=== PATIENT | female | born 1940 | race Caucasian/White ===

== ENCOUNTER 2017-11-06 12:53 | Inpatient (IN) | payer MEDICARE, OTHER ==
[~2017-11-06] VITALS: Ht 152.4 cm; Wt 68.5 kg
[~2017-11-06 12:53] MED LIST: AMARYL4 MG PO; AMLODIPINE BESY10 MG PO; ASPIR 8181 M1 PO; BACTRIM DS TAB1 EACH PO; BENTYL 10 MG CA10 M1 PO; BYSTOLIC 5 MG5 M1 PO; CARBIDOPA-LEVO1 EAC6 PO; CIPRO500 MG PO; CLARITIN10 MG PO; COZAAR 50 MG TA50 M2 PO; FLAGYL500 MG PO; HYDRALAZINE 2525 MG PO; IMDUR 60 MG TAB60 M1 PO; LANTUS100 UNIT/M SUBQ; LEVAQUIN 500 M500 M2 PO; LEVOTHYROXINE 0.1 MG PO; LIPITOR40 MG PO; LOPRESSOR50 PO; MACROBID 100 M100 M1 PO; MAG-OXIDE400 MG PO; NORCO 5-325 TA1 EACH PO; NORVASC10 MG PO; OMEPRAZOLE40 MG PO; VITAMIN D2000 UNIT PO
[2017-11-06 13:05] VITALS: BP 170/95
[2017-11-06] MEDS ORDERED: LASIX 20 MG TAB20 MG PO (13:14)
[2017-11-06] MEDS ORDERED: LOPRESSOR25 PO (13:14)
[2017-11-06] MEDS ORDERED: OMEPRAZOLE 20 M20 MG PO (13:15)
[2017-11-06] MEDS ORDERED: NITROGLYCERIN0.4 MG SUBLING (13:16)
[2017-11-06] MEDS ORDERED: ALL DAY ALLERGY10 M3 PO (13:16)
[2017-11-06 13:35] LABS: ABSOLUTE BASOPHILS 0.1 thou/uL (0.0-0.2); ABSOLUTE EOSINOPHILS 0.1 thou/uL (0.0-0.7); ABSOLUTE LYMPHOCYTES 1.1 thou/uL (0.8-5.3); ABSOLUTE MONOCYTES 1.4 thou/uL (0.0-1.2); ABSOLUTE NEUTROPHILS 6.2 thou/uL (1.6-8.1); BASOPHILS 1.3 %; EOSINOPHILS 0.7 %; HEMATOCRIT 37.7 % (37.0-47.0); HEMOGLOBIN 12.1 gm/dL (12.0-15.0); LYMPHOCYTES 12.6 %; MCHC 32.2 g/dL (28.0-37.0); MCV 83.9 fL (80.0-100.0); MONOCYTES 15.6 %; NUCLEATED RBCS 0 /100WBC; PLATELET COUNT* 225 thou/uL (150-400); POLYS 69.8 %; RBC 4.49 mil/uL (4.20-5.00); RDW-CV 15.6 % (10.5-14.5); WBC 8.9 thou/uL (4.0-11.0)
[2017-11-06 13:38] LABS: INFLUENZA B ANTIGEN None Detected (None Detect)
[2017-11-06 13:43] LABS: ANION GAP 12 mmol/L (7-16); BUN 17 mg/dL (7-18); CALCIUM 9.1 mg/dL (8.5-10.1); CHLORIDE 100 mmol/L (98-107); CO2 24 mmol/L (21-32); CREATININE 1.5 mg/dL (0.6-1.3); GLUCOSE 170 mg/dL (70-99); SODIUM 136 mmol/L (136-145)
[2017-11-06 13:50] LABS: ALBUMIN 3.6 g/dL (3.4-5.0); ALKALINE PHOSPHATASE 74 U/L (46-116); SGOT 41 U/L (15-37); SGPT 20 U/L (30-65); TOTAL BILIRUBIN 0.4 mg/dL (<0.1-1.0); TOTAL PROTEIN 8.6 g/dL (6.4-8.2); TROPONIN-I LEVEL <0.06 ng/mL (<0.06)
[2017-11-06 15:43] VITALS: BP 134/73
[2017-11-06 17:00] VITALS: BP 135/69
--- NOTE | 2017-11-06 20:59 | NUR ---
PATIENT A&OX2-3 CONFUSED, ON 2L O2 NC, IV RIGHT AC WITH FLUIDS INFUSSING. PATIENT IS LETHARGIC AND SLEEPING. PATIENT WILL WAKE UP WHEN HEARING NAME, BUT FALLS BACK ASLEEP SOON THERAFTER. UNABLE TO SIGN PAPERWORK, VERBALIZES UNDERSTANDING. FAMILY WILL BE AT BEDSIDE THROUGH THE NIGHT, INSTRUCTED NOC NURSE TO HAVE FAMILY SING. UP WITH ASSISTX1, UNSTEADY. BM TODAY, LOOSE WATER, ODOROUS, AND MUCUS CONSISTANCY. SAMPLE SENT FOR POSSIBLE C-DIFF, RESULTS PENDING. NO C/O PAIN/N/V. PATIENT RECIEVED TYLENOL PRIOR TO ADMISSION TO FLOOR, TEMP WENT DOWN TO 97.5. ADM ASSESSMENT COMPLETED AND DOCUMENTED. NO OTHER CONCERNS AT THIS TIME. APPROPRIATE AND COOPORATIVE WITH CARE.
[2017-11-06 21:30] VITALS: BP 169/76
[2017-11-07 03:45] VITALS: BP 145/65
[2017-11-07 05:08] LABS: HEMATOCRIT 33.2 % (37.0-47.0); HEMOGLOBIN 10.6 gm/dL (12.0-15.0); MCH 27.4 pg (26.0-34.0); MCHC 32.1 g/dL (28.0-37.0); MCV 85.4 fL (80.0-100.0); MPV 9.5 fl. (7.2-11.1); RBC 3.88 mil/uL (4.20-5.00); RDW-CV 15.8 % (10.5-14.5); WBC 6.9 thou/uL (4.0-11.0)
[2017-11-07 05:26] LABS: CALCIUM 8.2 mg/dL (8.5-10.1); CREATININE 1.5 mg/dL (0.6-1.3); MAGNESIUM 1.8 mg/dL (1.8-2.4)
--- NOTE | 2017-11-07 07:31 | NUR ---
PT DROWSY OVERNIGHT, AWAKENS BRIEFLY WITH CARES AND MEDS AND BACK TO SLEEP. O2 2L, RT TX AT HS. AM LABS DRAWN, CXR TODAY. FAMILY MEMBERS AT BEDSIDE OVERNIGHT, BED ALARM ON FOR SAFETY, CALL LITE IN EASY REACH. RAC IVF INFUSING PER PUMP. HS ACCUCHECK 143, INSULIN GIVEN AND VANILLA PUDDING. INCONTINENT URINE OVERNIGHT, UNABLE TO OBTAIN UA SPECIMEN, JACK CARE GIVEN. CONGESTED COUGH HEARD, NO SPUTUM SEEN. REMAINS ON DROPLET PRECAUTIONS FOR +FLU- HOSPITALIZED ON TELE UNIT FOR +FLU WELL. NO BM OVERNIGHT.
[2017-11-07 08:15] VITALS: BP 131/72
[2017-11-07 09:47] LABS: URINE BILIRUBIN NEGATIVE (Negative); URINE BLOOD 3+ (Negative); URINE CLARITY CLEAR; URINE COLOR YELLOW; URINE GLUCOSE-RANDOM NEGATIVE (Negative); URINE KETONES NEGATIVE (Negative); URINE LEUKOCYTES-REFLEX NEGATIVE (Negative); URINE NITRITE-REFLEX NEGATIVE (Negative); URINE PROTEIN 3+ (Negative); URINE SPECIFIC GRAVITY >= 1.030 (1.005-1.030); URINE UROBILINOGEN 0.2 E.U./dl (0.2-1.0)
[2017-11-07 09:56] LABS: BACTERIA-REFLEX 1-9 Few /HPF (None Seen); CASTS None Seen /LPF (None Seen); CRYSTALS None Seen /LPF (None Seen); SQUAMOUS 4-10 Moderate /LPF (0-3); URINE RBC >20 Many /HPF (0-2); URINE WBC-REFLEX 0-5 Rare /HPF (0-5)
--- NOTE | 2017-11-07 10:58 | EKG ---
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: MS : 1940 Requested By: Marek Alvares Order Number: [id number] MD: Kavon Talamantes Measurements Intervals [place] Rate: 87 P: 17 [place]: 183 QRS: -1 QRSD: 134 T: -57 QT: 386 QTc: 465 Interpretive Statements Sinus rhythm Right bundle branch block Inferior infarct, age indeterminate Lateral leads are also involved Compared to ECG 06/12/2016 20:46:12 No significant changes Electronically Signed On 11-07-2017 10:57:52 RUBBER MIXER by Kavon Talamantes [email or web address] <ELECTRONICALLY SIGNED> By: Kavon Talamantes MD, FACAmaya 11/07/17 1057 1335 1335 Kavon Talamantes MD, [facility] /EPI
--- NOTE | 2017-11-07 14:28 | NUR ---
SW met with pt and pt dtr bedside to complete initial assessment, introduce self, and SW role. Pt alert although did not talk much. Pt dtr answered questions. Pt lives at home with her . Pt has a can and a walker. Pt has history of HH services with [facility]. No expressed needs at this time. SW to continue to follow to assist with safe dc planning.
--- NOTE | 2017-11-07 16:20 | NUR ---
PATIENT'S C DIFF RESULT CAME BACK POSITIVE. DR MICHAEL PAGED TO INFORM OF POSITIVE RESULT. AWAITING RETURN CALL.
--- NOTE | 2017-11-07 17:49 | NUR ---
PATIENT HAS BEEN A/O TO PERSON, AND TIME THIS SHIFT. HAS SLEPT IN NAPS THIS SHIFT. COTNINUES ON O2 AT 2L/NC. UP WITH ASSIST TO BATHROOM. C DIFF +, RESULTS CALLED TO PHYSICIAN AND ORDERS NOTED. PATIENT'S IV SALINE LOCKED. APPETITE FAIR. PT/OT/ST FROYALS PENDING. FAMILY AT BEDSIDE INTERMITTENTLY THIS SHIFT. FALL PRECAUTIONS IN PLACE. TURNING SELF WITH REMINDERS. HOURLY ROUNDING MAINTAINED. CALL LIGHT WITHIN REACH. WILL CONTINUE WITH PLAN OF CARE.
[2017-11-07 19:50] VITALS: BP 142/68
--- NOTE | 2017-11-08 06:08 | NUR ---
PT MORE AWAKE AND ALERT TONIGHT THAN LAST NIGHT, CONVERSATIONAL, AOX4 WITH PERIOD OF CONFUSION OVERNIGHT-ATTEMPTING TO GET OOB SETTING OFF BED ALARM AND PULLING OUT IV. CONGESTED COUGH HEARD, NO SPUTUM SEEN. O2 2L. HS ACCUCHECK 237 INSULIN GIVEN WITH SNACK. UP WITH SBA AND WALKER TO BR TO VOID. SMALL SMEAR BM OVERNIGHT. REMAINS ON DROPLET AND SP CONTACT ISOLATION FOR +FLU AND CDIFF, PO VANC GIVEN ORDERED. AM LAB. ABLE TO USE CALL LITE AND MAKE NEEDS KNOWN.
[2017-11-08 09:00] VITALS: BP 145/65
--- NOTE | 2017-11-08 14:32 | NUR ---
PT. DECLINED O.T. EVAL STATING THAT SHE DIDN'T HAVE A NEED FOR O.T. PT. SAYS SHE HAS BEEN GETTING UP TO THE BATHROOM WITHOUT ANY DIFFICULTY AND ABLE TO BATHE HERSELF. THEREFORE, O.T. SERVICES ARE NOT INDICATED PER PT. PREFERENCE AND REPORT.
--- NOTE | 2017-11-08 15:40 | NUR ---
SW checked on pt copay of Vanco 125 mg with [facility] and pharmacy quoted pt copay to be $55. Script to be ready tomorrow after 8 am. SW to continue to follow to assist with safe dc planning.
[2017-11-08 16:55] VITALS: BP 150/73
--- NOTE | 2017-11-08 18:59 | NUR ---
PATIENT HAS BEEN A/O TO PERSON, PLACE AND SITUATION, FORGETFUL AT TIMES. PATIENT TITRATED TO ROOM AIR. PATIENT CONTINUES WITH LOOSE STOOLS, CONTINUES ON ORAL VANCOMYCIN. PATIENT STARTED ON IV FLUIDS THIS AFTERNOON. PATIENT HAD COMPLAINTS OF INTERMITTENT CHEST PAIN THIS AFTERNOON, DR MICHAEL NOTIFIED. PLACED ON SOFTWARE PROJECT LEAD, TRACING NSR. EKG OBTAINED AND TROPONINS COMPLETED. UP WITH STAND BY ASSIST WITH WALKER TO BATHROOM. TOLERATING DIET. PATIENT HOPEFUL TO BE DISCHARGED SOON. REMAINS IN DROPLET PRECAUTIONS FOR + FLU AND SPECIAL CONTACT ISOLATION FOR + CDIFF. HOURLY ROUNDING COMPLETED. CALL LIGHT WITHIN REACH. WILL CONTINUE WITH PLAN OF CARE.
[2017-11-08 19:50] VITALS: BP 153/74
[2017-11-08 23:30] VITALS: BP 123/62
[2017-11-09 03:54] VITALS: BP 109/70
[2017-11-09 03:59] LABS: HEMATOCRIT 29.5 % (37.0-47.0); HEMOGLOBIN 9.5 gm/dL (12.0-15.0); MCH 27.3 pg (26.0-34.0); MCHC 32.3 g/dL (28.0-37.0); MCV 84.5 fL (80.0-100.0); RBC 3.48 mil/uL (4.20-5.00); RDW-CV 15.4 % (10.5-14.5); WBC 5.8 thou/uL (4.0-11.0)
[2017-11-09 04:12] LABS: CALCIUM 7.8 mg/dL (8.5-10.1); CREATININE 1.3 mg/dL (0.6-1.3); POTASSIUM 4.2 mmol/L (3.5-5.1)
--- NOTE | 2017-11-09 06:49 | NUR ---
ASSESSMENT COMPLETE. PT SLEPT PART OF THE NIGHT, MELATONIN GIVEN TO HELP SLEEP. PT IS ON ROOM AIR WITH ADEQUATE SATS. PT DENIES PAIN AND N/V. PT TURNS SELF IN BED. PT IS IN ISOLATION FOR CDIFF AND FLU. PT IS FALL RISK, BED ALARM ON. PT IS UP ONE ASSIST TO BSC. PT HAS IV IN RIGHT FOREARM WITH FLUIDS INFUSING. SEE ASSESSMENT AND VITALS FOR OTHER DETAILS. CALL LIGHT WITHIN REACH, WILL CONTINUE TO MONITOR
[2017-11-09 10:00] VITALS: BP 152/75
--- NOTE | 2017-11-09 13:05 | EKG ---
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 Supervisor: RODNEY PARRA : 1940 Requested By: Pete Lopez Order Number: [id number] Ciara MD: Kavon Talamantes Measurements Intervals [place] Rate: 76 P: 43 [place]: 182 QRS: -27 QRSD: 143 T: -38 QT: 396 QTc: 446 Interpretive Statements Sinus rhythm Right bundle branch block Inferior infarct, age indeterminate Compared to ECG 11/06/2017 13:35:34 No significant changes Electronically Signed On 11-09-2017 13:05:44 [employer] 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
[2017-11-09 16:22] VITALS: BP 143/75
--- NOTE | 2017-11-09 19:49 | NUR ---
PATIENT HAS BEEN A/O X 4 THIS SHIFT, FORGETFUL AT TIMES. HAS DENIED ANY PAIN OR SHORTNESS OF AIR. PATIENT CONTINUES ON EVP BUSINESS DEVELOPMENT, TRACING NSR. PATIENT UP TO BSC/BR WITH MINIMAL ASSIST. PATIENT'S BOWEL MOVEMENTS DECREASING THIS SHIFT AND HAVING MORE FORM TO THEM. CONTINUES ON ORAL VANCOMYCIN. IV FLUIDS CONTINUE TO INFUSE, CPK TRENDING DOWN. PATIENT TO START ON PROBIOTICS AND ID CONSULT NOTED. PATIENT HOPEFUL TO BE DISCHARGED TOMORROW. REMAINS IN ISOLATION FOR +FLU AND +CDIFF. FALL PRECAUTIONS IN PLACE. HOURLY ROUNDING COMPLETED. CALL LIGHT WITHIN REACH. WILL CONTINUE WITH PLAN OF CARE.
[2017-11-09 20:15] VITALS: BP 151/81
[2017-11-10] VITALS (9 sets, daily range): BP systolic 137–149; BP diastolic 63–70
--- NOTE | 2017-11-10 05:42 | NUR ---
PT SLEPT WELL OVERNIGHT, UP WITH SBA TO BSC TO VOID AND SOFT UNFORMED BM. DENIES PAIN. HS ACCUCHECK 256, INSULIN GIVEN WITH SNACK. NO LABS THIS MORNING. ROOM AIR SAT 96%. RFA IVF INFUSING PER PUMP. PO VANC GIVEN ORDERED WITH APPLE JUICE. TELE SR. AOX4. REMAINS ON ISOLATION FOR +FLU AND +CDIFF. ABLE TO USE CALL LITE AND MAKE NEEDS KNOWN. PROBIOTICS GIVEN. HOPEFUL FOR DISCHARGE HOME TODAY.
[2017-11-10] MEDS ORDERED: VANCOCIN 125 M125 M1 PO (13:01)
--- NOTE | 2017-11-10 14:03 | NUR ---
Pt to dc home today and pt preference for [facility] services. JENARO called Mariela with [facility] and faxed referral/orders/med list to [facility] fax [phone]; referral accepted.
--- NOTE | 2017-11-10 15:07 | NUR ---
PATIENT IS ALERT AND ORIENTED TODAY VERY PLEASANT. HAS HAD NO COMPLAINTS TODAY OF PAIN SHORTNESS OF AIR. HAS BEEN AT BEDSIDE THIS AFTERNOON. VITALS SIGNS STABLE ON ROOM AIR. PATIENT HAD A BOWEL MOVEMENT THIS MORNING. PATIENT IS BEING DISCHARGED HOME WITH HOME HEALTH. PATIENT LEFT VIA WHEELCHAIR WITH VOLUNTEER.
--- NOTE | 2017-11-11 07:37 | CON ---
[address] [address] CONSULTATION Name: CHI VELOZ Room: [address] IN M.R.#: [id number] Admission: 11/06/17 Attend Phys: En Ramirez MD Discharge: 11/10/17 Date of : 38 Report #: [id number] THIS REPORT FOR: //name// CC: En Wagoner DATE OF SERVICE: 11/10/2017 ATTENDING PHYSICIAN: Amilcar Rodriguez MD REASON FOR EVALUATION: C. diff colitis. HISTORY OF PRESENT ILLNESS: Chart reviewed, patient examined. This is a 77-year-old female with history of diabetes mellitus, also renal carcinoma, who was admitted with encephalopathy, dyspnea, did have associated diarrhea at that point, was diagnosed with influenza A. She has improved from that standpoint; however, had C. diff positive toxin studies, empirically started on azithromycin, ceftriaxone and now oral vancomycin as well as Tamiflu. She notes she is significantly better. Her stools are semi-formed. Denies pulmonary related complaints at this point. ALLERGIES: TAPE AND SULFA. CURRENT MEDICATIONS: Include lactobacillus, saccharomyces, vancomycin, amlodipine, atorvastatin, azithromycin, oseltamivir, ceftriaxone, pantoprazole, levofloxacin, metoprolol, isosorbide mononitrate, aspirin, ipratropium/albuterol inhaler. PAST MEDICAL HISTORY: As described above, the diabetes mellitus, history of previous left nephrectomy, has hypertension, reflux, has known vasculopathy, coronary artery disease with stenting, some ataxia. SOCIAL HISTORY: Nonsmoker, no ethanol. FAMILY HISTORY: Noncontributory. REVIEW OF SYSTEMS: As above. Denies significant gastrointestinal-related complaints at this point, is actually eating fairly well. PHYSICAL EXAMINATION: VITAL SIGNS: Temperature 98.1, pulse 62, respirations 14, blood pressure 137/66. SKIN: Warm, dry, no rashes. HEENT: Otherwise, unremarkable. NECK: Supple. LUNGS: Few [place] [address] CONSULTATION Name: CHI VELOZ Room: [address] IN ..#: [id number] Admission: 11/06/17 Attend Phys: En Ramirez MD Discharge: 11/10/17 Date of : 38 Report #: [id number] HEART: Regular. Borderline bradycardic. I do not appreciate a murmur. ABDOMEN: Soft, nontender, nondistended. EXTREMITIES: No cyanosis. GENITOURINARY: Deferred. RECTAL: Deferred. LABORATORY DATA: Electrolytes from yesterday: Sodium 139, potassium 4.2, chloride 105, bicarbonate 24, BUN and creatinine 13 and 1.3, anion gap of 10, estimated GFR of 40. CBC: White count of 5.8, H and H 9.5 and 29.5, platelets of 172. Blood cultures collected on the are sterile. Legionella and pneumococcal antigens urine are negative. As noted above, C. diff was positive. MRSA by PCR was negative. Chest x-ray from the , patchy lingular infiltrate. ASSESSMENT: Clostridium difficile colitis in the setting of influenza pneumonitis, has been on broad spectrum antimicrobial therapy. We will pare that down. I think at this point would focus on the intestinal infection. We will utilize a tapering schedule for vancomycin over the course of next few weeks. We will see her in followup. <ELECTRONICALLY SIGNED> By: Luis Antonio Isaacs MD 11/11/17 0737 1224 [id number] Isaacs MD /nt
== END 2017-11-10 15:00 | disposition home health service (06) | DRG 177 ==
LOC: M.ERS 12:53 → M.3W 14:38 → M.TBA-ER 14:38 → M.3W 16:14
PROVIDERS: Emergency Medicine Emergency Medical Services; Internal Medicine; ADMIT Internal Medicine
DX: J10.08 Influenza due to other identified influenza virus with other specified pneumonia (principal); G92 Toxic encephalopathy; J15.6 Pneumonia due to other Gram-negative bacteria; A04.72 Enterocolitis due to Clostridium difficile, not specified as recurrent; M62.82 Rhabdomyolysis; I12.9 Hypertensive chronic kidney disease with stage 1 through stage 4 chronic kidney disease, or unspecified chronic kidney disease; J45.909 Unspecified asthma, uncomplicated; N18.3 Chronic kidney disease, stage 3 (moderate); I25.10 Atherosclerotic heart disease of native coronary artery without angina pectoris; E11.22 Type 2 diabetes mellitus with diabetic chronic kidney disease; K21.9 Gastro-esophageal reflux disease without esophagitis; Z88.8 Allergy status to other drugs, medicaments and biological substances; Z85.528 Personal history of other malignant neoplasm of kidney; Z90.5 Acquired absence of kidney; Z90.710 Acquired absence of both cervix and uterus; Z88.2 Allergy status to sulfonamides; Z87.440 Personal history of urinary (tract) infections; Z90.49 Acquired absence of other specified parts of digestive tract

== ENCOUNTER 2018-06-01 07:21 | Observation (INO) | payer MEDICARE, OTHER ==
[~2018-06-01] VITALS: Ht 152.4 cm; Wt 74.4 kg
[2018-06-01] VITALS (18 sets, daily range): BP systolic 109–172; BP diastolic 73–90
--- NOTE | ~2018-06-01 | PROC ---
[address] [place] [address] PROCEDURE REPORT Name: CHI VELOZ Room: [address] Ninfa Louise#: [id number] Admission: 06/01/18 Attend Phys: Ciaran Fierro MD, Discharge: 06/02/18 Date of : 38 Report #: [id number] THIS REPORT FOR: //name// Please refer to the History and Physical performed in the physician's office. By: [id number] Records Staff VERO /LIBRA
[~2018-06-01 07:21] MED LIST changes: +ALL DAY ALLERGY10 M3 PO; +LASIX 20 MG TAB20 MG PO; +LOPRESSOR25 PO; +NITROGLYCERIN0.4 MG SUBLING; +OMEPRAZOLE 20 M20 MG PO; +VANCOCIN 125 M125 M1 PO
[2018-06-01 08:04] LABS: HEMATOCRIT 36.3 % (37.0-47.0); HEMOGLOBIN 11.5 gm/dL (12.0-15.0); MCH 26.3 pg (26.0-34.0); MCHC 31.6 g/dL (28.0-37.0); MCV 83.1 fL (80.0-100.0); MPV 9.2 fl. (7.2-11.1); RBC 4.37 mil/uL (4.20-5.00); RDW-CV 16.9 % (10.5-14.5); WBC 7.4 thou/uL (4.0-11.0)
[2018-06-01] MEDS ORDERED: KLOR-CON 1010 MEQ PO (08:04)
[2018-06-01 08:09] LABS: ANION GAP 9 mmol/L (7-16); BUN 24 mg/dL (7-18); CALCIUM 8.6 mg/dL (8.5-10.1); CHLORIDE 103 mmol/L (98-107); CO2 25 mmol/L (21-32); CREATININE 1.5 mg/dL (0.6-1.3); GLUCOSE 135 mg/dL (70-99); POTASSIUM 3.9 mmol/L (3.5-5.1); SODIUM 137 mmol/L (136-145)
[2018-06-01 08:13] LABS: APTT 24.5 Seconds (25.0-31.3)
[2018-06-01 08:15] LABS: ALBUMIN 3.3 g/dL (3.4-5.0); ALKALINE PHOSPHATASE 61 U/L (46-116); CHOLESTEROL 121 mg/dL (<200); HDL CHOLESTEROL 48 mg/dL (>40); LDL CHOLESTEROL 33 mg/dL (<100); SGOT 16 U/L (15-37); SGPT 10 U/L (30-65); TC:HDL 2.5 Ratio (Not establshd); TOTAL BILIRUBIN 0.4 mg/dL (<0.1-1.0); TOTAL PROTEIN 7.6 g/dL (6.4-8.2); TRIGLYCERIDE 201 mg/dL (<150); VLDL 40 mg/dL (<40)
[2018-06-01 08:16] LABS: SERUM ASSESSMENT Clear
--- NOTE | 2018-06-01 11:30 | NUR ---
PT ARRIVED ON THE UNIT FROM THE CORK COMPOUNDER. REPORT TAKEN FROM STACY. PT IS A&O WITH NO C/O PAIN. R GROIN DRSG IS CLEAN DRY AND INTACT. PT IS AFEBRILE. SHE IS ON ROOM AIR. PT HAS A ZARATE CATH WITH CLEAN YELLOW URINE. BED IS IN LOW POSITION CALL LIGHT IS IN REACH. PT ON CARDIAC MONITER TRACING NSR. WM.
--- NOTE | 2018-06-01 17:53 | NUR ---
PT HAS RESTED IN HER ROOM LYING FLAT UNTILL 1700 PER POST CATH PROTOCOL. DRSG HAS REMAINED CLEAN DRY AND INTACT. AND SON ARE AT BEDSIDE. PT HAS NO C/O PAIN. EDUCATION GIVEN ON DEMAND. HOURLY ROUNDING COMPLETE.
[2018-06-02] VITALS: BP 137/84
[2018-06-02 04:00] VITALS: BP 131/80
[2018-06-02 04:44] LABS: HEMATOCRIT 32.2 % (37.0-47.0); HEMOGLOBIN 10.2 gm/dL (12.0-15.0); MCH 26.2 pg (26.0-34.0); MCHC 31.8 g/dL (28.0-37.0); MCV 82.4 fL (80.0-100.0); MPV 9.5 fl. (7.2-11.1); RBC 3.9 mil/uL (4.20-5.00); RDW-CV 16.8 % (10.5-14.5); WBC 9.5 thou/uL (4.0-11.0)
--- NOTE | 2018-06-02 05:17 | NUR ---
PT SLEPT OFF AND ON OVERNIGHT. RGROIN CATH SITE DRSG CDI, SOFT, NO BRUISING NOTED. TYLENOL GIVEN X1 FOR CO R LEG ACHE WITH GOOD RELIEF. RAC IVF INFUSING PER PUMP. ZARATE DRAINING CLEAR LIGHT YELLOW URINE. AM LABS DRAWN. HS ACCUCHECK 271, INSULIN GIVEN ORDERED WITH SNACK. AOX4, ABLE TO USE CALL LITE AND MAKE NEEDS KNOWN. TELE SR. VSS. ANTICIPATING DISCHARGE HOME TODAY.
[2018-06-02 05:21] LABS: ALBUMIN 2.8 g/dL (3.4-5.0); CALCIUM 8.3 mg/dL (8.5-10.1); CREATININE 1.4 mg/dL (0.6-1.3); POTASSIUM 3.8 mmol/L (3.5-5.1); TOTAL BILIRUBIN 0.4 mg/dL (<0.1-1.0); TOTAL PROTEIN 6.4 g/dL (6.4-8.2); TROPONIN-I LEVEL 0.39 ng/mL (<0.06)
[2018-06-02 08:00] VITALS: BP 142/71
[2018-06-02 08:03] VITALS: BP 142/71
--- NOTE | 2018-06-02 08:37 | NUR ---
ASSUMED RESPONSIBILITY OF PT THIS AM PT IS ALERT AND ORIENTED FORGETFUL AT TIMES RESTING THIS AM NO PAIN SB ON THE MONITOR PT SHOULD DISCHARGE HOME TODAY NO CONCERNS AT THIS TIME CALL LIGHT IN REACH CALLS OUT APPROPRIATLEY
[2018-06-02] MEDS ORDERED: BRILINTA90 MG PO (08:51)
--- NOTE | 2018-06-02 10:22 | EKG ---
[place] [address] ELECTROCARDIOGRAM REPORT Name: CHI VELOZ Room: [address] M.R.#: [id number] Admission: 06/01/18 Attend Phys: Ciaran Fierro MD, Discharge: Date of : 38 Report #: [id number] THIS REPORT FOR: //name// [facility] Test Date: 2018-06-01 Test Time: 07:47:07 Pat Name: CHI VELOZ Department: Room: [facility] Gender: F Dealership Manager: : 1940 Requested By: Ciaran Fierro Order Number: [id number] Ciara MD: Navdeep Loving Measurements Intervals [place] Rate: 54 P: 20 [place]: 196 QRS: -6 QRSD: 143 T: -2 QT: 475 QTc: 451 Interpretive Statements Sinus rhythm Right bundle branch block Inferior infarct, old Compared to ECG 11/08/2017 17:01:34 No significant changes Electronically Signed On 06-02-2018 10:22:31 CDT by Navdeep Loving [email or web address] <ELECTRONICALLY SIGNED> By: Navdeep Loving MD, [facility] 06/02/18 1022 0747 0747 Navdeep Loving MD, [facility] /EPI
--- NOTE | 2018-06-02 10:23 | EKG ---
[place] [address] ELECTROCARDIOGRAM REPORT Name: CHI VELZO Room: [address] M.R.#: [id number] Admission: 06/01/18 Attend Phys: Ciraan Fierro MD, Discharge: Date of : 36 Report #: [id number] THIS REPORT FOR: //name// [facility] Test Date: 2018-06-01 Test Time: 11:18:29 Pat Name: CHI VELOZ Department: Room: [facility] Gender: F Sterile Proc Tech: : 1940 Requested By: Ciaran Fierro Order Number: [id number] Reading MD: Navdeep Loving Measurements Intervals [place] Rate: 68 P: 47 [place]: 196 QRS: -4 QRSD: 140 T: -30 QT: 445 QTc: 474 Interpretive Statements Sinus rhythm Right bundle branch block Inferior infarct, age indeterminate Compared to ECG 11/08/2017 17:01:34 No significant changes Electronically Signed On 06-02-2018 10:23:31 CDT by Navdeep Loving [email or web address] <ELECTRONICALLY SIGNED> By: Navdeep Loving MD, [facility] 06/02/18 1023 1118 1118 Navdeep Loving MD, [facility] /EPI
--- NOTE | 2018-06-02 10:26 | EKG ---
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: : 1940 Requested By: Ciaran Fierro Order Number: [id number] Reading MD: Navdeep Loving Measurements Intervals [place] Rate: 66 P: 36 [place]: 202 QRS: -8 QRSD: 141 T: -48 QT: 440 QTc: 461 Interpretive Statements Sinus rhythm Right bundle branch block Inferior infarct, age indeterminate Compared to ECG 11/08/2017 17:01:34 No significant changes Electronically Signed On 06-02-2018 10:25:53 CDT by Navdeep Loving [email or web address] <ELECTRONICALLY SIGNED> By: Navdeep Loving MD, [facility] 06/02/18 1022 0906 0906 Navdeep Loving MD, [facility] /EPI
--- NOTE | 2018-06-02 10:50 | NUR ---
PT DISCHARGED HOME WITH IV AND CATHETER DISCONTINUED NO CONCERNS AT THIS TIME SCRIPT GIVEN
--- NOTE | 2018-06-02 11:39 | CARD ---
[address] [address] CARDIAC CATH REPORT Name: CHI VELOZ Room: [address] Ninfa Louise#: [id number] Admission: 06/01/18 Attend Phys: Ciaran Fierro MD, Discharge: 06/02/18 Date of : 38 Report #: [id number] THIS REPORT FOR: //name// APPROVED REPORT Study performed: 06/01/2018 07:56:16 Patient Details The patient is a 77 year-old female Event Personnel Ciaran Fierro Trade Show Coordinator, Jenna Guy RN RN, En Nolan, Katie Corrales RTR Scrub Procedures Performed Left heart catheterization selective coronary arteriography and atherectomy with stenting of the proximal LAD Indication Unstable angina Risk Factors Hypercholesterolemia, Hypertension Previous Procedures/Diagnoses Previous PCI Admission/Lab Medications/Medications given during procedure Aspirin, Platelet Aff. Inhib., Angiomax bolus and infusion Procedure Narrative A 6fr Ultimum Sheath sheath was inserted into the . Coronary angiography was performed using coronary diagnostic catheters. The right coronary system was accessed and visualized with a Diagnostic - JR4 catheter. The left coronary system was accessed and visualized with a Diagnostic - JL4 catheter. The left ventricle was accessed and visualized with a Diagnostic - STR PIG catheter. Left ventricular/Aortic Valve gradient assessed via catheter pullback. The patient tolerated the procedure well and there were no complications associated with the procedure. There was no hematoma. Intraoperative Conscious Sedation Sedation start time: 927 Case end Time: 1040 Fentanyl 25 mcg Versed 1 [place] [address] CARDIAC CATH REPORT Name: CHI VELOZ Room: [address] Ninfa Louise#: [id number] Admission: 06/01/18 Attend Phys: Ciaran Fierro MD, Discharge: 06/02/18 Date of : 38 Report #: [id number] Fluoro Time: 15.4 minutes Dose: DAP 217095 cGycm2 1606 mGy Contrast Type and Amount: Visipaque 250 ml Diagnostic Cath Left Main 0% narrowing LAD 90% heavily calcified proximal stenosis with 75% calcified first diagonal narrowing Circumflex 50% mid vessel narrowing with 60% narrowing of the proximal portion of the first marginal branch Right Coronary Dominant vessel with 30% proximal and mid vessel narrowing IVUS Findings NC Trek RX 2.75 X 12 Hemodynamics The aortic pressure is 171/76 mmHg with a mean of 109 mmHg. The left ventricular pressure is 171/3 mmHg with a mean of mmHg. The left ventricular end diastolic pressure is 24 mmHg. PCI Technique Lesion Anticoagulation was achieved with Angiomax. Patient was preloaded with Angiomax IV 10.5 mg per kg. Percutaneous coronary intervention was performed on the proximal left anterior descending artery segment. The lesion stenosis prior to intervention was 90% with TERRELL 3 flow. A 6FR XB 3.5 100CM Guide Catheter was used to engage the ostium. A IG: ProwaterFlex 180CM Interventional Guidewire was used to cross the lesion. BALLOON DILATION A Balloon catheter NC Trek RX 2.5 X 12, 3.0x10 angiosculpt was inserted and inflated up to 16.00atm for 31seconds. Additional Inflation: 18.00atm for 17seconds. Additional Inflation: 20.00atm for 17seconds. Final angiography reveals 10 % stenosis with TERRELL 3 flow. COMMENTS The proximal LAD stenosis with heavily calcified required significant lesion preparation prior to stenting BALLOON DILATION A Balloon catheter NC Trek RX 2.75 X 12 was [place] [address] CARDIAC CATH REPORT Name: CHI VELOZ [address]: [address]#: [id number] Admission: 06/01/18 Attend Phys: Ciaran Fierro MD, Discharge: 06/02/18 Date of : 38 Report #: [id number] to 15.00atm for 11seconds. Additional Inflation: 16.00atm for 9seconds. Additional Inflation: 18.00atm for 14seconds. Balloon Dilation A Balloon catheter AngioSculpt PTCA 3.0 X 10mm was inserted and inflated up to thelma for seconds. BALLOON DILATION A Balloon catheter AngioSculpt PTCA 3.0 X 10mm was inserted and inflated up to 8.00atm for 23seconds. Additional Inflation: 10.00atm for 26seconds. Additional Inflation: 12.00atm for 26seconds. STENT DEPLOYMENT A stent Xience Alpine RX 2.75 x 23 was inserted and inflated up to 14.00atm for 16seconds. Additional Inflation: 17.00atm for 16seconds. Additional Inflation: 18.00atm for 13seconds. Conclusion #1 significant coronary artery disease characterized by the following: A 90% heavily calcified proximal LAD stenosis with 75% narrowing of the proximal portion of the first diagonal branch B 50% mid circumflex narrowing with 60% narrowing of the first marginal branch C 30% proximal and mid right coronary narrowing, this being a dominant vessel #2 moderate systemic systolic hypertension #3 successful atherotomy/atherectomy with stenting of the 90% proximal LAD stenosis with 10% residual narrowing following stent deployment Recommendations Cardiac Risk Reduction Program Aggressive Medical Therapy Medications Administered Aspirin (any) [place] [address] CARDIAC CATH REPORT Name: CHI VELOZ [address]: [address]#: [id number] Admission: 06/01/18 Attend Phys: Ciaran Fierro MD, Discharge: 06/02/18 Date of : 36 Report #: [id number] Diagnostic Cath Approved by: Ciaran Fierro MD Date/Time: 06/02/2018 11:38:34 <ELECTRONICALLY SIGNED> By: Ciaran Fierro MD, [facility] 06/02/18 1139 1139 1139Ciaran Fierro MD, [facility] /INF
--- NOTE | 2018-06-03 12:15 | D ---
[address] [address] DISCHARGE SUMMARY Name: CHI VELOZ Room: [address] Ninfa Louise#: [id number] Admission: 06/01/18 Attend Phys: Ciaran Fierro MD, Discharge: 06/02/18 Date of : 36 Report #: [id number] THIS REPORT FOR: //name// CC: Ciaran Wagoner DATE OF SERVICE: 06/02/2018 FINAL DISCHARGE DIAGNOSES: 1. Unstable angina. 2. Coronary artery disease. 3. Status post atherectomy and stenting of the proximal left anterior descending. 4. Hypertension. 5. Hyperlipidemia. 6. Type 2 diabetes. PROCEDURES: 06/01/2018 -- left heart catheterization, selective coronary arteriography and percutaneous coronary intervention with atherectomy and stenting of the proximal LAD. The patient is a very pleasant and active 77-year-old female who presented with episodes of chest tightness, occurring with minimal provocation and increasing in frequency and severity. The patient has underlying diabetes, hypertension and hyperlipoproteinemia. In that context, I performed cardiac catheterization on 06/01/2018, which revealed 80%-90% heavily calcified proximal LAD stenosis with 70%-80% first diagonal narrowing. I elected to perform percutaneous coronary intervention with atherectomy, followed by stenting of proximal LAD with no significant residual narrowing and TERRELL 3 flow of the distal vessel. Troponin hiren inconsequentially to 0.39. Lab on 06/02 with sodium 138, potassium 3.8, BUN 18, creatinine 1.4. Hemoglobin 10.2; white blood cell count 9500; with 226,000 platelets. The patient ambulated in the hallways without difficulty and was discharged to home in stable condition on the following medications: Amlodipine 10 mg daily, aspirin 81 mg daily, atorvastatin 80 mg daily, furosemide 20 mg daily, Lantus insulin 25 units at bedtime, isosorbide mononitrate 30 mg daily, L-thyroxine 0.1 mg daily, metoprolol tartrate 25 mg b.i.d., omeprazole 20 mg daily, potassium chloride 10 mEq daily and newly instituted Brilinta at [address] [place] [address] DISCHARGE SUMMARY Name: CHI VELOZ [address]: [address] [id number] Admission: 06/01/18 Attend Phys: Ciaran Fierro MD, Discharge: 06/02/18 Date of : 36 Report #: [id number] The patient is scheduled to see my nurse practitioner in 1 week and myself in 5 weeks. <ELECTRONICALLY SIGNED> By: Ciaran Fierro MD, [facility] 06/03/18 1215 1012 [id number] Fierro MD, FACC /nt
== END 2018-06-02 10:50 | disposition home or self-care (01) ==
LOC: M.CL 07:21 → M.TBA-CV 10:49 → M.2W 11:30
PROVIDERS: ADMIT Internal Medicine
DX: I25.110 Atherosclerotic heart disease of native coronary artery with unstable angina pectoris (principal); I10 Essential (primary) hypertension; E78.5 Hyperlipidemia, unspecified; E11.9 Type 2 diabetes mellitus without complications; R79.1 Abnormal coagulation profile

== ENCOUNTER → 2018-12-28 | Outpatient (CLI) | payer MEDICARE, OTHER ==
[~2018-12-28] MED LIST changes: +BRILINTA90 MG PO; +KLOR-CON 1010 MEQ PO; -LEVOTHYROXINE 0.1 MG PO; +PLAVIX 75 MG TA75 MG PO; +SYNTHROID100 MC1 PO
== END ==
LOC: M.RAD 13:21
DX: Z12.31 Encounter for screening mammogram for malignant neoplasm of breast (principal)

== ENCOUNTER → 2019-02-07 | Outpatient (CLI) | payer MEDICARE, OTHER ==
[~2019-02-07] MED LIST changes: +ESTRADIOL 1 MG T1 M1; +HYDRALAZINE 2525 MG; +PROTONIX 20 MG20 MG; +VITAMIN D3400 UNIT
--- NOTE | 2019-02-07 14:11 | 2DMMODE ---
[place] [address] 2 D/M-MODE ECHOCARDIOGRAM Name: CHI VELOZ Room: [facility]#: [id number] Admission: 02/07/19 Attend Phys: Junaid Buckner Discharge: Date of : 36 Date of Service: 02/07/19 1410 Report #: [id number] THIS REPORT FOR: //name// APPROVED REPORT Study performed: 02/07/2019 09:47:40 EXAM: Comprehensive 2D, Doppler, and color-flow Echocardiogram Patient Location: Out-Patient BSA: 1.67 HR: 60 bpm BP: 136/78 mmHg Other Information Study Quality: Fair Indications CAD Hypertension/HDD 2D Dimensions IVSd: 11.15 (7-11mm) LVOT Diam: 20.09 (18-24mm) LVDd: 48.74 mm PWd: 10.20 (7-11mm) Ascending Ao: 31.82 (22-36mm) LVDs: 28.25 (25-40mm) Aortic Root: 31.27 mm Volumes Left Atrial Volume (Systole) LA ESV Index: 15.70 mL/m2 Aortic Valve AoV Peak Carlos.: 1.21 m/s AO Peak Gr.: 5.86 mmHg LVOT Max P.42 mmHg AO Mean Gr.: 3.55 mmHg LVOT Mean P.43 mmHg LVOT Max V: 0.78 m/s AO V2 VTI: 30.78 cm LVOT Mean V: 0.56 m/s CAPRI (VTI): 2.01 cm2 LVOT V1 VTI: 19.54 cm AI [place]: 2.08 m/s2 AI PHT: 652.07 ms Mitral Valve E/A Ratio: 0.38 MV Decel. Time: 312.86 [place] [address] 2 D/M-MODE ECHOCARDIOGRAM Name: CHI VELOZ Room: [facility]#: [id number] Admission: 02/07/19 Attend Phys: Junaid Buckner Discharge: Date of : 36 Date of Service: 02/07/19 1410 Report #: [id number] MV E Max Carlos.: 0.42 m/s MV PHT: 90.73 ms MVA (PHT): 2.42 cm2 TDI E/Lateral E': 7.00 E/Medial E': 6.00 Medial E' Carlos.: 0.07 m/s Lateral E' Carlos.: 0.06 m/s Pulmonary Valve PV Peak Carlos.: 0.75 m/s PV Peak Gr.: 2.22 mmHg Tricuspid Valve RAP Estimate: 5.00 mmHg TR Peak Gr.: 20.56 mmHg RVSP: 25.56 mmHg PA Pressure: 25.56 mmHg Left Ventricle The left ventricle is normal size. There is normal LV segmental wall motion. There is normal left ventricular wall thickness. Left ventricular systolic function is normal. The left ventricular ejection fraction is within the normal range. LVEF is 55-60%. Grade I - abnormal relaxation pattern. Right Ventricle The right ventricle is normal size. The right ventricular systolic function is normal. Atria The left atrium size is normal. The right atrium size is normal. Aortic Valve Aortic valve is mildly calcified. Mild aortic regurgitation. There is no aortic valvular stenosis. Mitral Valve The mitral valve is normal in structure. Mild mitral regurgitation. No evidence of mitral valve stenosis. Tricuspid Valve The tricuspid valve is normal in structure. Mild tricuspid regurgitation. Pulmonic Valve Pulmonic valve is not well visualized. There [place] [address] 2 D/M-MODE ECHOCARDIOGRAM Name: CHI VELOZ Room: [facility]#: [id number] Admission: 02/07/19 Attend Phys: Junaid Buckner Discharge: Date of : 36 Date of Service: 02/07/19 1410 Report #: [id number] regurgitation. Great Vessels The aortic root is normal in size. IVC is not well visualized. Pericardium There is no pericardial effusion. <Conclusion> LVEF is 55-60%. Aortic valve is mildly calcified. Mild aortic regurgitation. Mild mitral regurgitation. <ELECTRONICALLY SIGNED> By: Kavon Talamantes MD, [facility] 02/07/19 141 09 09 Kavon Talamantes MD, [facility] /INF
== END ==
LOC: M.CRD 09:37
DX: I08.3 Combined rheumatic disorders of mitral, aortic and tricuspid valves (principal); I25.10 Atherosclerotic heart disease of native coronary artery without angina pectoris; I10 Essential (primary) hypertension

== ENCOUNTER 2019-02-11 19:36 | Inpatient (IN) | payer MEDICARE, OTHER ==
[~2019-02-11] VITALS: Ht 152.4 cm; Wt 66.2 kg
[~2019-02-11 19:36] MED LIST changes: -ESTRADIOL 1 MG T1 M1; -HYDRALAZINE 2525 MG; -PROTONIX 20 MG20 MG; -VITAMIN D3400 UNIT
[2019-02-11 19:39] VITALS: BP 175/88
[2019-02-11] MEDS ORDERED: ESTRADIOL 1 MG T1 M1 PO (19:49)
[2019-02-11] MEDS ORDERED: HYDRALAZINE 2525 MG PO (19:50)
[2019-02-11] MEDS ORDERED: PROTONIX 20 MG20 MG PO (19:50)
[2019-02-11] MEDS ORDERED: VITAMIN D3400 UNIT PO (19:51)
[2019-02-11 20:25] LABS: ABSOLUTE BASOPHILS 0.2 thou/uL (0.0-0.2); ABSOLUTE EOSINOPHILS 0.6 thou/uL (0.0-0.7); ABSOLUTE LYMPHOCYTES 1.8 thou/uL (0.8-5.3); ABSOLUTE MONOCYTES 1.1 thou/uL (0.0-1.2); ABSOLUTE NEUTROPHILS 10.3 thou/uL (1.6-8.1); BASOPHILS 1.4 %; EOSINOPHILS 4.3 %; HEMATOCRIT 37.3 % (37.0-47.0); HEMOGLOBIN 11.8 gm/dL (12.0-15.0); LYMPHOCYTES 12.9 %; MCH 25.1 pg (26.0-34.0); MCHC 31.6 g/dL (28.0-37.0); MCV 79.2 fL (80.0-100.0); NUCLEATED RBCS 0 /100WBC; PLATELET COUNT* 265 thou/uL (150-400); POLYS 73.4 %; RBC 4.72 mil/uL (4.20-5.00); RDW-CV 18.3 % (10.5-14.5); WBC 14.1 thou/uL (4.0-11.0)
[2019-02-11 20:33] LABS: PROTIME 9.8 Seconds (9.20-11.50)
[2019-02-11 20:34] LABS: ANION GAP 11 mmol/L (7-16); BUN 25 mg/dL (7-18); CALCIUM 8.7 mg/dL (8.5-10.1); CHLORIDE 104 mmol/L (98-107); CO2 23 mmol/L (21-32); CREATININE 1.7 mg/dL (0.6-1.3); GLUCOSE 174 mg/dL (70-99); POTASSIUM 4.8 mmol/L (3.5-5.1); SODIUM 138 mmol/L (136-145)
[2019-02-11 20:45] LABS: ALBUMIN 3.5 g/dL (3.4-5.0); ALKALINE PHOSPHATASE 81 U/L (46-116); LIPASE 174 U/L (73-393); NT-PRO BRAIN NAT PEPTIDE 1756 pg/mL (<300); SGOT 15 U/L (15-37); SGPT 18 U/L (30-65); TOTAL BILIRUBIN 0.3 mg/dL (<0.1-1.0); TROPONIN-I LEVEL <0.06 ng/mL (<0.06)
[2019-02-11 21:30] LABS: URINE BILIRUBIN NEGATIVE (Negative); URINE BLOOD 3+ (Negative); URINE CLARITY CLEAR; URINE COLOR YELLOW; URINE GLUCOSE-RANDOM TRACE (Negative); URINE KETONES NEGATIVE (Negative); URINE LEUKOCYTES-REFLEX NEGATIVE (Negative); URINE PROTEIN 3+ (Negative); URINE SPECIFIC GRAVITY 1.025 (1.005-1.030); URINE UROBILINOGEN 0.2 E.U./dl (0.2-1.0)
[2019-02-11 21:31] LABS: URINE NITRITE-REFLEX POSITIVE (Negative)
[2019-02-11 21:40] LABS: BACTERIA-REFLEX >30 Many /HPF (None Seen); CASTS None Seen /LPF (None Seen); MUCUS 4-6 Moderate strn/LPF (None Seen); SQUAMOUS 0-3 Few /LPF (0-3); URINE WBC-REFLEX >25 Many /HPF (0-5); WBC CLUMPS Moderate (None Seen)
[2019-02-11 21:41] LABS: AMORPHOUS URATES Many /LPF (None Seen)
[2019-02-11 22:35] VITALS: BP 166/91
[2019-02-11 22:45] VITALS: BP 148/75
--- NOTE | 2019-02-12 06:18 | NUR ---
PATIENT ADMITTED TO ROOM 115 FROM THE ER AT APPROXIMATELY 2245. VSS ON RA. PATIENT VERY PLEASANT AND ABLE TO ANSWER MOST QUESTIONS APPROPRIATELY AND IS ABLE TO TELL ME HER NAME AND WHERE SHE IS AND WHY SHE IS HERE. PATIENT ACCOMPANIED BY HER AND HER SON. PATIENT AND FAMILY ORIENTED TO ROOM AND POLICIES. FALL EDUCATION GIVEN AND FALL AGREEMENT SIGNED. PATIENT AND FAMILY VERBALIZED UNDERSTANDING. ASSESSMENT CHARTED. ZARATE TO DEPENDENT DRAINAGE WITH LIGHT YELLOW URINE OUTPUT. IV IN RIGHT AC-NS @ 70ML/HR. FALL PRECAUTIONS IN PLACE AND HOURLY ROUNDS MADE. WILL CONTINUE WITH PLAN OF CARE AND NURSING TO MONITOR.
[2019-02-12 09:48] VITALS: BP 161/69
--- NOTE | 2019-02-12 10:30 | EKG ---
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 : 1940 Requested By: Tania Paris Order Number: [id number] MD: Kavon Talamantes Measurements Intervals [place] Rate: 89 P: 33 CO: 163 QRS: -23 QRSD: 130 T: -27 QT: 386 QTc: 470 Interpretive Statements Sinus rhythm Right bundle branch block Inferior infarct, age indeterminate Compared to ECG 12/04/2018 10:59:41 Left ventricular hypertrophy no longer present Prolonged QT interval no longer present Myocardial infarct finding still present Electronically Signed On 02-12-2019 10:30:41 CDT by Kavon Talamantes [email or web address] <ELECTRONICALLY SIGNED> By: Kavon Talamantes MD, [facility] 02/12/19 1030 19 19 Kavon Talamantes MD, [facility] /EPI
[2019-02-12 12:14] VITALS: BP 179/80
--- NOTE | 2019-02-12 12:26 | NUR ---
PT TO UNIT AT APPROX 1000 THIS MORNING. ALERT AND ORIENTED. TELE TRACKING SR AND ALL VSS ON ROOM AIR. DENIES CP, SOA. AGREE WITH PRIOR NURSE ASSESSMENT. EDUCATED ON NEW UNIT AND PLAN OF CARE. WILL CONTINUE TO MONITOR
[2019-02-12 17:25] VITALS: BP 109/60; BP 170/67
[2019-02-12 20:00] VITALS: BP 140/68
[2019-02-13 00:30] VITALS: BP 146/70
[2019-02-13 04:15] VITALS: BP 134/71; BP 140/65
[2019-02-13 05:25] LABS: HEMATOCRIT 33.6 % (37.0-47.0); HEMOGLOBIN 10.6 gm/dL (12.0-15.0); MCHC 31.5 g/dL (28.0-37.0); MCV 79.5 fL (80.0-100.0); MPV 9.6 fl. (7.2-11.1); RBC 4.22 mil/uL (4.20-5.00); RDW-CV 18.3 % (10.5-14.5); WBC 11.4 thou/uL (4.0-11.0)
[2019-02-13 06:07] LABS: CALCIUM 8.1 mg/dL (8.5-10.1); CREATININE 1.5 mg/dL (0.6-1.3); MAGNESIUM 1.7 mg/dL (1.8-2.4)
--- NOTE | 2019-02-13 06:52 | NUR ---
ASSUMED CARE OF PT AFTER REPORT AT 1930. PT A&OX4. FORGETFUL. VSS. PHYSICAL ASSESSMENT COMPLETED AND CHARTED. PT ON RA. PT TRACING SR BBB ON TELE. PT DENIES ANY PAIN OR SOA. PT RESTED WELL ON BED. CALL LIGHT WITHIN REACH.
[2019-02-13 07:15] VITALS: BP 144/85
--- NOTE | 2019-02-13 10:00 | NUR ---
INITAL ASSESSMENT COMPLETED CHARTED. VSS. PT DENIES PAIN, N/V/D, CP, OR SOA. PT IS ALERT & ORIETNTED AND ABLE TO VOICE ALL NEEDS. PT TRACING SR ON MONITOR. PT DENIES ANY FIRTHER NEEDS. HOURLY ROUNDING AND FALL PRECAUTIONS I PLACE. CLWR.
[2019-02-13] MEDS ORDERED: MACROBID 100 M100 M2 PO (11:44)
--- NOTE | 2019-02-13 11:57 | NUR ---
Spoke with Pt's at bedside, Pt was asleep. Pt resides at home with , independent, continues to cook and clean. drives. Pt has a walker and RW. No home o2. No hx of HH or SNF. Supportive kids that live in the area. Pt is discharging to home today, no needs.
[2019-02-13] MEDS ORDERED: LASIX 20 MG TAB20 MG PO ×2 (12:10→12:13)
[2019-02-13 12:38] VITALS: BP 144/85
[2019-02-13 12:42] VITALS: BP 143/75
== END 2019-02-13 12:57 | disposition home or self-care (01) | DRG 91 ==
LOC: M.ERS 19:36 → M.2W 21:36 → M.TBA-ER 21:36 → M.ORTHSURG 21:36 → M.2W 02-12 10:09
PROVIDERS: Emergency Medicine; Internal Medicine; ADMIT Internal Medicine
DX: G92 Toxic encephalopathy (principal); R65.11 Systemic inflammatory response syndrome (SIRS) of non-infectious origin with acute organ dysfunction; N39.0 Urinary tract infection, site not specified; K21.9 Gastro-esophageal reflux disease without esophagitis; N18.3 Chronic kidney disease, stage 3 (moderate); I12.9 Hypertensive chronic kidney disease with stage 1 through stage 4 chronic kidney disease, or unspecified chronic kidney disease; E11.22 Type 2 diabetes mellitus with diabetic chronic kidney disease; I25.10 Atherosclerotic heart disease of native coronary artery without angina pectoris; Z85.528 Personal history of other malignant neoplasm of kidney; Z90.5 Acquired absence of kidney; Z95.5 Presence of coronary angioplasty implant and graft; Z88.2 Allergy status to sulfonamides; Z79.82 Long term (current) use of aspirin; Z79.899 Other long term (current) drug therapy

== ENCOUNTER → 2019-08-22 | Outpatient (CLI) | payer MEDICARE, OTHER ==
[~2019-08-22] MED LIST changes: +ESTRADIOL 1 MG T1 M1 PO; +MACROBID 100 M100 M2 PO; +PROTONIX 20 MG20 MG PO; +VITAMIN D3400 UNIT PO
== END ==
LOC: M.WC 12:54
DX: E11.622 Type 2 diabetes mellitus with other skin ulcer (principal); L97.821 Non-pressure chronic ulcer of other part of left lower leg limited to breakdown of skin; I87.2 Venous insufficiency (chronic) (peripheral); S81.832A Puncture wound without foreign body, left lower leg, initial encounter; E11.42 Type 2 diabetes mellitus with diabetic polyneuropathy; I10 Essential (primary) hypertension; K21.9 Gastro-esophageal reflux disease without esophagitis; F32.9 Major depressive disorder, single episode, unspecified; Z85.528 Personal history of other malignant neoplasm of kidney; Z95.5 Presence of coronary angioplasty implant and graft; Z86.73 Personal history of transient ischemic attack (TIA), and cerebral infarction without residual deficits; Z79.4 Long term (current) use of insulin; Z79.82 Long term (current) use of aspirin; X58.XXXA Exposure to other specified factors, initial encounter; Y93.89 Activity, other specified; Y92.89 Other specified places as the place of occurrence of the external cause; Y99.8 Other external cause status

== ENCOUNTER → 2019-08-29 | Outpatient (CLI) | payer MEDICARE, OTHER | LOC: M.WC 04:58 | DX: E11.622 Type 2 diabetes mellitus with other skin ulcer (principal); L97.828 Non-pressure chronic ulcer of other part of left lower leg with other specified severity; S81.832D Puncture wound without foreign body, left lower leg, subsequent encounter; E11.40 Type 2 diabetes mellitus with diabetic neuropathy, unspecified; E11.22 Type 2 diabetes mellitus with diabetic chronic kidney disease; I12.9 Hypertensive chronic kidney disease with stage 1 through stage 4 chronic kidney disease, or unspecified chronic kidney disease; N18.3 Chronic kidney disease, stage 3 (moderate); I87.2 Venous insufficiency (chronic) (peripheral); K21.9 Gastro-esophageal reflux disease without esophagitis; F32.9 Major depressive disorder, single episode, unspecified; Z95.5 Presence of coronary angioplasty implant and graft; Z86.73 Personal history of transient ischemic attack (TIA), and cerebral infarction without residual deficits; Z85.528 Personal history of other malignant neoplasm of kidney; X58.XXXD Exposure to other specified factors, subsequent encounter ==

== ENCOUNTER 2019-09-30 13:29 | Emergency (ER) | payer MEDICARE, OTHER ==
[~2019-09-30] VITALS: Ht 152.4 cm; Wt 70.2 kg
[2019-09-30 14:19] LABS: ABSOLUTE BASOPHILS 0.1 thou/uL (0.0-0.2); ABSOLUTE EOSINOPHILS 0.5 thou/uL (0.0-0.7); HEMOGLOBIN 11.5 gm/dL (12.0-15.0); WBC 8.6 thou/uL (4.0-11.0)
[2019-09-30 14:21] LABS: ABSOLUTE LYMPHOCYTES 1.4 thou/uL (0.8-5.3); ABSOLUTE NEUTROPHILS 5.6 thou/uL (1.6-8.1); EOSINOPHILS 5.7 %; HEMATOCRIT 35.7 % (37.0-47.0); LYMPHOCYTES 16.9 %; MCH 26.4 pg (26.0-34.0); MCHC 32.2 g/dL (28.0-37.0); MCV 82.2 fL (80.0-100.0); MONOCYTES 11.8 %; MPV 9.4 fl. (7.2-11.1); NUCLEATED RBCS 0 /100WBC; PLATELET COUNT* 239 thou/uL (150-400); POLYS 64.6 %; RBC 4.34 mil/uL (4.20-5.00); RDW-CV 17.4 % (10.5-14.5)
[2019-09-30 14:21] LABS: BE -6.6 mmol/L (-2 to +3); PCO2 31.1 mmHg (35.0-45.0); PO2 79.5 mmHg (75.0-100.0); pH 7.371 (7.340-7.450)
[2019-09-30 14:33] LABS: CREATININE 1.6 mg/dL (0.6-1.3); POTASSIUM 4.7 mmol/L (3.5-5.1); PROTIME 10.4 Seconds (9.20-11.50)
[2019-09-30 14:38] LABS: ALBUMIN 3.5 g/dL (3.4-5.0); MAGNESIUM 1.6 mg/dL (1.8-2.4); TOTAL BILIRUBIN 0.3 mg/dL (<0.1-1.0)
[2019-09-30 14:47] LABS: URINE BILIRUBIN NEGATIVE (Negative); URINE BLOOD 2+ (Negative); URINE CLARITY CLEAR; URINE COLOR YELLOW; URINE GLUCOSE-RANDOM NEGATIVE (Negative); URINE KETONES NEGATIVE (Negative); URINE LEUKOCYTES-REFLEX NEGATIVE (Negative); URINE NITRITE-REFLEX NEGATIVE (Negative); URINE PROTEIN 3+ (Negative); URINE SPECIFIC GRAVITY >= 1.030 (1.005-1.030); URINE UROBILINOGEN 0.2 E.U./dl (0.2-1.0)
[2019-09-30 14:57] LABS: SQUAMOUS 0-3 Few /LPF (0-3)
[2019-09-30 14:58] LABS: MUCUS None Seen strn/LPF (None Seen); URINE RBC 0-2 Rare /HPF (0-2); URINE WBC-REFLEX 0-5 Rare /HPF (0-5)
[2019-09-30 14:59] LABS: AMORPHOUS URATES Many /LPF (None Seen); CASTS None Seen /LPF (None Seen); CRYSTALS None Seen /LPF (None Seen)
[2019-09-30 15:18] LABS: INFLUENZA A ANTIGEN Negative (Negative); INFLUENZA B ANTIGEN Negative (Negative)
[2019-09-30] MEDS ORDERED: MEDROLDOSEPACK PO (15:41)
[2019-09-30 16:43] VITALS: BP 138/63
--- NOTE | 2019-10-01 13:59 | EKG ---
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: : 1940 Requested By: Dia Donaldson Order Number: [id number] MD: Kavon Talamantes Measurements Intervals [place] Rate: 78 P: 23 MS: 187 QRS: 89 QRSD: 136 T: -14 QT: 410 QTc: 468 Interpretive Statements Sinus rhythm Nonspecific intraventricular conduction delay Inferior infarct, age indeterminate Compared to ECG 02/11/2019 20:20:25 Myocardial infarct finding still present Electronically Signed On 10-01-2019 13:59:32 GRID CASTER by Kavon Talamantes [email or web address] <ELECTRONICALLY SIGNED> By: Kavon Talamantes MD, [facility] 10/01/19 1359 1411 1411 Kavon Talamantes MD, FACC /EPI
== END 2019-09-30 16:44 | disposition home or self-care (01) ==
LOC: M.ERS 13:29
PROVIDERS: Personal Emergency Response Attendant
DX: J06.9 Acute upper respiratory infection, unspecified (principal); R50.9 Fever, unspecified; I10 Essential (primary) hypertension; E11.9 Type 2 diabetes mellitus without complications; K21.9 Gastro-esophageal reflux disease without esophagitis; Z87.440 Personal history of urinary (tract) infections; Z95.5 Presence of coronary angioplasty implant and graft; Z79.4 Long term (current) use of insulin; Z91.048 Other nonmedicinal substance allergy status; Z88.2 Allergy status to sulfonamides

== ENCOUNTER → 2019-10-23 | Outpatient (CLI) | payer MEDICARE ==
[~2019-10-23] MED LIST changes: +MEDROLDOSEPACK PO
--- NOTE | 2019-10-23 14:22 | 2DMMODE ---
[place] [address] 2 D/M-MODE ECHOCARDIOGRAM Name: CHI VELOZ Room: [facility]#: [id number] Admission: 10/23/19 Attend Phys: Junaid Buckner Discharge: Date of : 36 Date of Service: 10/23/19 1421 Report #: [id number] THIS REPORT FOR: //name// APPROVED REPORT Study performed: 10/23/2019 10:29:33 EXAM: Comprehensive 2D, Doppler, and color-flow Echocardiogram Patient Location: Out-Patient BSA: 1.62 HR: 64 bpm BP: 130/75 mmHg Other Information Study Quality: Good Indications CAD Hypertension/HDD 2D Dimensions IVSd: 14.38 (7-11mm) LVOT Diam: 20.18 (18-24mm) LVDd: 42.71 mm PWd: 10.75 (7-11mm) Ascending Ao: 31.32 (22-36mm) LVDs: 28.62 (25-40mm) Aortic Root: 29.03 mm Volumes Left Atrial Volume (Systole) LA ESV Index: 16.60 mL/m2 Aortic Valve AoV Peak Carlos.: 1.35 m/s AO Peak Gr.: 7.33 mmHg LVOT Max P.22 mmHg AO Mean Gr.: 4.36 mmHg LVOT Mean P.72 mmHg LVOT Max V: 1.14 m/s AO V2 VTI: 29.14 cm LVOT Mean V: 0.77 m/s CAPRI (VTI): 2.63 cm2 LVOT V1 VTI: 23.98 cm AI Stanton: 2.57 m/s2 AI PHT: 489.18 ms Mitral Valve E/A Ratio: 0.60 MV Decel. Time: 242.42 [place] [address] 2 D/M-MODE ECHOCARDIOGRAM Name: CHI VELOZ Room: [facility]#: [id number] Admission: 10/23/19 Attend Phys: Junaid Bcukner Discharge: Date of : 36 Date of Service: 10/23/19 1421 Report #: [id number] MV E Max Carlos.: 0.66 m/s MV PHT: 70.30 ms MVA (PHT): 3.13 cm2 TDI E/Lateral E': 13.20 E/Medial E': 11.00 Medial E' Carlos.: 0.06 m/s Lateral E' Carlos.: 0.05 m/s Pulmonary Valve PV Peak Carlos.: 0.81 m/s PV Peak Gr.: 2.62 mmHg Tricuspid Valve RAP Estimate: 5.00 mmHg TR Peak Gr.: 25.23 mmHg RVSP: 30.23 mmHg PA Pressure: 30.23 mmHg Left Ventricle The left ventricle is normal size. There is normal LV segmental wall motion. Mild concentric left ventricular hypertrophy. Left ventricular systolic function is normal. LVEF is 55-60%. Grade I - abnormal relaxation pattern. Right Ventricle The right ventricle is normal size. The right ventricular systolic function is normal. Atria The left atrium size is normal. The right atrium size is normal. Aortic Valve The Aortic valve is sclerotic. Mild aortic regurgitation. There is no aortic valvular stenosis. Mitral Valve Mild mitral annular calcification. Mild mitral regurgitation. No evidence of mitral valve stenosis. Tricuspid Valve The tricuspid valve is normal in structure. Mild tricuspid regurgitation. The RVSP is 30-35 mmHg. Pulmonic Valve The pulmonary valve is normal in structure. There is no pulmonic [place] [address] 2 D/M-MODE ECHOCARDIOGRAM Name: CHI VELOZ Room: [facility]#: [id number] Admission: 10/23/19 Attend Phys: Junaid Buckner Discharge: Date of : 36 Date of Service: 10/23/19 1421 Report #: [id number] Great Vessels The aortic root is normal in size. IVC is normal in size and collapses >50% with inspiration. Pericardium There is no pericardial effusion. <Conclusion> The left ventricle is normal size. Mild concentric left ventricular hypertrophy. Left ventricular systolic function is normal. LVEF is 55-60%. Grade I - abnormal relaxation pattern. The Aortic valve is sclerotic. Mild aortic regurgitation. Mild mitral regurgitation. Mild tricuspid regurgitation. The RVSP is 30-35 mmHg. Mild mitral annular calcification. <ELECTRONICALLY SIGNED> By: Hollis Corona MD, FACC 10/23/19 142 142 142 Hollis Corona MD, FACC /INF
== END ==
LOC: M.CRD 10:11
DX: I08.3 Combined rheumatic disorders of mitral, aortic and tricuspid valves (principal); I25.10 Atherosclerotic heart disease of native coronary artery without angina pectoris; I11.9 Hypertensive heart disease without heart failure

== ENCOUNTER 2019-12-17 09:32 | Observation (INO) | payer MEDICARE ==
[~2019-12-17] VITALS: Ht 152.4 cm; Wt 74.6 kg
[~2019-12-17 09:32] MED LIST changes: +LEVEMIR100 UNIT/1
[2019-12-17 10:56] LABS: HEMATOCRIT 34.4 % (37.0-47.0); MCH 27.1 pg (26.0-34.0); MCHC 32.1 g/dL (28.0-37.0); MCV 84.4 fL (80.0-100.0); MPV 9.1 fl. (7.2-11.1); RBC 4.07 mil/uL (4.20-5.00); RDW-CV 16.6 % (10.5-14.5); WBC 9.3 thou/uL (4.0-11.0)
[2019-12-17 11:05] LABS: ANION GAP 11 mmol/L (7-16); BUN 23 mg/dL (7-18); CALCIUM 8.6 mg/dL (8.5-10.1); CHLORIDE 102 mmol/L (98-107); CO2 22 mmol/L (21-32); CREATININE 1.7 mg/dL (0.6-1.3); GLUCOSE 317 mg/dL (70-99); POTASSIUM 4.5 mmol/L (3.5-5.1); SODIUM 135 mmol/L (136-145)
[2019-12-17 11:06] LABS: APTT 24.6 Seconds (25.0-31.3); PROTIME 10.1 Seconds (9.20-11.50)
[2019-12-17 11:10] LABS: ALBUMIN 3.5 g/dL (3.4-5.0); ALKALINE PHOSPHATASE 70 U/L (46-116); CHOLESTEROL 110 mg/dL (<200); HDL CHOLESTEROL 44 mg/dL (>40); LDL CHOLESTEROL 17 mg/dL (<100); SGOT 18 U/L (15-37); SGPT 17 U/L (30-65); TC:HDL 2.5 Ratio (Not establshd); TOTAL BILIRUBIN 0.3 mg/dL (<0.1-1.0); TOTAL PROTEIN 7.9 g/dL (6.4-8.2); TRIGLYCERIDE 246 mg/dL (<150); VLDL 49 mg/dL (<40)
[2019-12-17 11:12] LABS: SERUM ASSESSMENT Clear
[2019-12-17 11:28] VITALS: BP 145/83
[2019-12-17] MEDS ORDERED: DOLOGEN CAPLET1 EACH PO (11:56)
[2019-12-17] MEDS ORDERED: KEFLEX250 M1 PO (11:57)
--- NOTE | 2019-12-17 16:31 | EKG ---
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: : 1940 Requested By: Ciaran Fierro Order Number: [id number] Ciara MD: Hollis Corona Measurements Intervals [place] Rate: 69 P: 25 VT: 202 QRS: -11 QRSD: 140 T: -28 QT: 461 QTc: 494 Interpretive Statements Sinus rhythm Right bundle branch block Inferior infarct, age indeterminate Compared to ECG 09/30/2019 14:11:19 Right bundle-branch block now present Intraventricular conduction delay no longer present Myocardial infarct finding still present Electronically Signed On 12-17-2019 16:29:59 CDT by Hollis Corona [email or web address] <ELECTRONICALLY SIGNED> By: Hollis Corona MD, FACC 12/17/19 1629 1040 1040 Hollis Corona MD, FACC /EPI
--- NOTE | 2019-12-17 16:34 | EKG ---
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 : 1940 Requested By: Ciaran Fierro Order Number: [id number] Ciara MD: Hollis Corona Measurements Intervals [place] Rate: 71 P: 29 WV: 196 QRS: -10 QRSD: 141 T: -7 QT: 460 QTc: 500 Interpretive Statements Sinus rhythm Right bundle branch block Inferior infarct, old Compared to ECG 09/30/2019 14:11:19 Right bundle-branch block now present Myocardial infarct finding still present Electronically Signed On 12-17-2019 16:33:01 CDT by Hollis Corona [email or web address] <ELECTRONICALLY SIGNED> By: Hollis Corona MD, FAC 12/17/19 1633 1527 1527 Hollis Corona MD, [facility] /EPI
[2019-12-17 16:35] VITALS: BP 152/78
[2019-12-17 16:57] VITALS: BP 150/77
[2019-12-17 18:00] VITALS: BP 150/74
[2019-12-17 19:00] VITALS: BP 145/71
[2019-12-17 20:00] VITALS: BP 153/82
--- NOTE | 2019-12-17 20:14 | NUR ---
RECEIVED REPORT FROM LINUX SERVER ADMINISTRATOR NURSE WALTER AT 1720. PATIENT BROUGHT TO THE FLOOR AT 1740. ADMISSION ASSESSMENT COMPLETED CHARTED. PATIENT ORIENTED TO UNIT, ROOM, BED, CALL-LIGHT, AND HOSPITAL POLICY. HOURLY ROUNDING IN PLACE FOR PATIENT SAFETY. PATIENT IS NSR ON THE MONITOR. RIGHT GROIN CATH SITE IS CLEAN, DRY, AND INTACT. CLWR.
[2019-12-18 00:23] VITALS: BP 138/64
[2019-12-18 04:00] VITALS: BP 162/76
[2019-12-18 04:09] LABS: HEMATOCRIT 30.1 % (37.0-47.0); HEMOGLOBIN 9.8 gm/dL (12.0-15.0); MCH 27.3 pg (26.0-34.0); MCHC 32.6 g/dL (28.0-37.0); MCV 83.6 fL (80.0-100.0); MPV 8.9 fl. (7.2-11.1); RBC 3.6 mil/uL (4.20-5.00); RDW-CV 16.2 % (10.5-14.5); WBC 9.8 thou/uL (4.0-11.0)
[2019-12-18 04:54] LABS: ALBUMIN 2.9 g/dL (3.4-5.0); CALCIUM 8.3 mg/dL (8.5-10.1); CREATININE 1.4 mg/dL (0.6-1.3); TOTAL BILIRUBIN 0.3 mg/dL (<0.1-1.0); TOTAL PROTEIN 6.7 g/dL (6.4-8.2)
[2019-12-18 05:27] LABS: TROPONIN-I LEVEL 0.91 ng/mL (<0.06)
--- NOTE | 2019-12-18 07:47 | NUR ---
Shift uneventful. Pt is aox4, running SR w/ BBB on telemetry, respirations are even and unlabored.
[2019-12-18 08:00] VITALS: BP 153/66
[2019-12-18 09:57] VITALS: BP 153/66
--- NOTE | 2019-12-18 10:40 | NUR ---
ASSUMED PT CARE AT 0800, AOX4, UP SBA, O2 SAT 90'S RA. TRACING SR ON TELE. PT DENIES PAIN. PT FOR DISCHARGE. R GROIN C/D/I. ZARATE CATH DRAINING WELL. VSS, AM ASSESSMENT CHARTED, MEDS GIVEN PER MAR, CALL LIGHT WITHIN REACH, WILL CONTINUE TO MONITOR.
--- NOTE | 2019-12-18 11:02 | EKG ---
[place] [address] ELECTROCARDIOGRAM REPORT Name: CHI VELOZ Room: [address] M.R.#: [id number] Admission: 12/17/19 Attend Phys: Junaid Bcukner Discharge: Date of : 36 Date of Service: 12/18/19812 Report #: [id number] THIS REPORT FOR: //name// 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
--- NOTE | 2019-12-18 11:04 | CARD ---
[address] [address] CARDIAC CATH REPORT Name: CHI VELOZ Room: [address] Ninfa M.R.#: [id number] Admission: 12/17/19 Attend Phys: Ciaran Fierro MD, Discharge: Date of : 38 Report #: [id number] THIS REPORT FOR: //name// cc: Silverio Wagoner MD, Matthew W. MD ~ THIS REPORT FOR: //name// APPROVED REPORT Study performed: 12/17/2019 12:52:55 Patient Details Patient Status: Out-Patient Room #: The patient is a 79 year-old female Event Personnel Ciaran Fierro Adult Educator, Valentina Shearer RN Sawyer Helper, Madina Room RTR Monitor, En Nolan Scrub Procedures Performed Art Access - R femoral artery, Left Heart Cath w/or w/o Coronaries, C BAUTSITA Place w/wo Plasty Single CIRC, BAUTISTA Place w/wo Plasty Addl BR DIAG 1, Hemostasis w/ Angioseal Indication Unstable angina Risk Factors Obesity, Hypercholesterolemia, Hypertension Previous Procedures/Diagnoses Previous PCI Admission/Lab Medications/Medications given during procedure Oxygen Nasal cannula 2 l per min, Lidocaine Subcut 18 ml, Angiomax IV bolus 10.5 ml, Angiomax Drip IV 13.82 ml per hr, Angiomax IV bolus 3 ml, Plavix PO 300 mg, Aspirin PO 81 mg Procedure Narrative The patient was brought electively to the Cardiac Catheterization Laboratory and was prepped and draped in a sterile manner. The right femoral groin area was infiltrated with 1% Lidocaine subcutaneous anesthesia. A 6F [place] sheath was inserted into the right femoral artery. Coronary angiography was performed using coronary diagnostic catheters. The right coronary system was accessed [place] [address] CARDIAC CATH REPORT Name: CHI VELOZ Room: [address] Ninfa Louise#: [id number] Admission: 12/17/19 Attend Phys: Ciaran Fierro MD, Discharge: Date of : 38 Report #: [id number] a 6F 3DRC catheter. The left coronary system was accessed and visualized with a 6F JL4 catheter. The left ventricle was accessed and visualized with a 6F Pigtail catheter. Left ventricular/Aortic Valve gradient assessed via catheter pullback. Pre-demployment femoral angiogram was performed . Closure device was deployed with a 6 Fr Angioseal STS. The patient tolerated the procedure well and there were no complications associated with the procedure. There was no hematoma. No left ventriculogram obtained. Left ventricular pressures and pullback only recorded. Intraoperative Conscious Sedation No sedation given. Procedure start time 13:26. Procedure end time 14:48. Fluoro Time: 22.4 minutes Dose: DAP 630466 cGycm2 3404 mGy Contrast Type and Amount: Visipaque 350 ml Coronary Angiography The patient's coronary anatomy is right dominant. Diagnostic Cath Left Main 0% narrowing LAD 40% proximal narrowing with widely patent mid LAD stent; was 90% tubular heavily calcified proximal narrowing of the prominent first diagonal branch Circumflex 80% focal mid vessel narrowing with 40% first marginal narrowing Right Coronary 60-70% narrowing of the proximal portion of the dominant right coronary artery Left Ventriculography Left Ventriculography was not performed. Hemodynamics The aortic pressure is 184/71 mmHg with a mean of 110 mmHg. The left ventricular pressure is 166/6 mmHg with a mean of mmHg. The left ventricular end diastolic pressure is 22 mmHg. There was no gradient across the aortic valve upon pullback. PCI Technique Lesion Anticoagulation was achieved with Angiomax. Patient was preloaded with Angiomax IV bolus 10.5 ml. Percutaneous coronary intervention was performed on the first diagnonal branch segment. The lesion stenosis prior to intervention was 90% with TERRELL 3 flow. A 6F XB LAD 3.5 Guide Catheter was used to engage the ostium. A BMW 190[place] [address] CARDIAC CATH REPORT Name: CHI VELOZ Room: [address] Ninfa M.RMckenzie#: [id number] Admission: 12/17/19 Attend Phys: Ciaran Fierro MD, Discharge: Date of : 38 Report #: [id number] Interventional Guidewire was used to cross the lesion. BALLOON DILATION A Balloon catheter Trek RX 2.25 X 12 was inserted and inflated up to 12.00atm for 13seconds. Additional Inflation: 12.00atm for 7seconds. Additional Inflation: 14.00atm for 5seconds. A 2.5 x 15 NC Trek balloon catheter was inserted and inflated up to 17 thelma for 11 seconds. Additional inflation of 20 thelma for 8 seconds. A 2.5 x 12 NC Euphora balloon catheter was inserted and inflated up to 14 thelma for 7 seconds. Additonal inflations of 17 thelma for 7 seconds snd 18 thelma for 8 seconds. STENT DEPLOYMENT A drug-eluting stent Star RX Stent 2.0X12mm was inserted and inflated up to 18.00atm for 11seconds. Additional Inflation: 22.00atm for 9seconds. Final angiography reveals 10 % stenosis with TERRELL 3 flow. COMMENTS A ProwaterFlex 180 cm interventional guidewire was advanced down LAD artery. PCI Technique Lesion 2 Percutaneous Coronary Intervention was performed on the mid circumflex artery segment. The lesion stenosis prior to intervention was 80% with TERRELL 3 flow. A ProwaterFlex 180CM Interventional Guidewire was used to cross the lesion. Stent Deployment A drug-eluting stent Florence RX Stent 3.0X8mm was inserted and inflated up to 12.00atm for 10seconds. Additional Inflation: 15.00atm for 7seconds. Additional Inflation: 16.00atm for 6seconds. Final angiography reveals 0 % stenosis with TERRELL 3 flow. Conclusion #1 significant coronary arteries characterized by the following: A 40% proximal LAD narrowing with widely patent mid LAD stent; there was 90% tubular calcified stenosis of the proximal portion of the prominent first diagonal branch B 80% focal mid circumflex narrowing with 40% proximal first marginal narrowing [address] [address] CARDIAC CATH REPORT Name: CHI VELOZ Room: [address] Ninfa JunaidMilana#: [id number] Admission: 12/17/19 Attend Phys: Ciaran Fierro MD, Discharge: Date of : 38 Report #: [id number] C 60-70% narrowing of the proximal portion of the dominant right coronary artery #2 moderate systemic systolic hypertension with moderate elevation of left ventricular end-diastolic pressure at rest #3 successful angioplasty with stenting of the first diagonal branch of the LAD with 10% residual narrowing and TERRELL-3 flow to the distal vessel #4 successful primary stenting of the mid circumflex with 0% residual narrowing and TERRELL-3 flow to the distal vessel Recommendations Cardiac Risk Reduction Program Aggressive Medical Therapy Medications Administered Aspirin (any) Clopidogrel Diagnostic Cath Approved by: Ciaran Fierro MD Date/Time: 12/18/2019 11:02:26 <ELECTRONICALLY SIGNED> By: Ciaran Fierro MD, [facility] 12/18/19 1103 02 02Ciaran Fierro MD, FACC /INF
[2019-12-18 11:52] VITALS: BP 153/66
[2019-12-18 12:00] VITALS: BP 155/60
--- NOTE | 2019-12-18 15:41 | NUR ---
DISCHARGED PLAN DISCUSSED WITH THE PT. MEDICATION PACKET GIVEN. IV, TELE REMOVED. ZARATE CATH REMOVED, PT VOID BEFORE D/C. ALL BELOGING PACKED AND CHECKED LEFT THE UNIT AT 1500.
--- NOTE | 2019-12-19 11:21 | D ---
[address] [address] DISCHARGE SUMMARY Name: CHI VELOZ Room: [address] Ninfa MMilana#: [id number] Admission: 12/17/19 Attend Phys: Ciaran Fierro MD, Discharge: 12/18/19 Date of : 38 Report #: [id number] THIS REPORT FOR: //name// cc: Silverio Wagoner MD, Matthew W. MD ~ THIS REPORT FOR: //name// CC: Ciaran Wagoner DATE OF SERVICE: 12/18/2019 FINAL DISCHARGE DIAGNOSES: 1. Unstable angina. 2. Coronary artery disease. 3. Diabetes mellitus. 4. Hypertension. 5. Hyperlipidemia. PROCEDURES: 12/17/2019 - left heart catheterization, selective coronary arteriography, and percutaneous coronary intervention to the first diagonal branch of the LAD and the mid circumflex. HOSPITAL COURSE: The patient is a very pleasant and active 79-year-old female with a history of coronary artery disease and prior stenting of the LAD. She presented with increasing episodes of chest discomfort, compatible with angina following an unstable course. In this context and with the risk factors of diabetes, hypertension and hyperlipidemia, I performed cardiac catheterization on 12/17/2019 and that study revealed 40% proximal LAD narrowing with a widely patent mid LAD stent. There was 90% calcified disease throughout the prominent first diagonal branch in its proximal portion. The circumflex demonstrated 80% mid vessel narrowing with 40% first marginal narrowing. The right coronary artery demonstrated 60-70% proximal narrowing. Given this data, I elected to perform percutaneous coronary intervention, deploying one 2.0 x 12 mm Star drug-eluting stent to 22 atmospheres in the first diagonal branch of the LAD and a 3.0 x 8 mm Star drug-eluting stent in the mid circumflex, deployed to 16 atmospheres with 10% and 0% residual narrowings of the 2 sites respectively and TERRELL 3 flow of the distal vessel. Troponin hiren inconsequentially to 0.91. Additional lab revealed sodium 140, potassium 4.0, BUN 19, down from 23 preprocedurally, creatinine 1.4, down from 1.7. Hemoglobin 9.8, hematocrit 30.1, platelets 250,000, white blood cell count 9800. The patient ambulated in the hallways without difficulty and there was good hemostasis at the [place] [address] DISCHARGE SUMMARY Name: CHI VELOZ Room: [address] Ninfa Louise#: [id number] Admission: 12/17/19 Attend Phys: Ciaran Fierro MD, Discharge: 12/18/19 Date of : 38 Report #: [id number] DISCHARGE MEDICATIONS: She was discharged home on the following medications: Amlodipine 10 mg daily, aspirin 81 mg b.i.d., atorvastatin 40 mg daily, Keflex 250 mg daily, vitamin D3 of 1000 units daily, clopidogrel or Plavix 75 mg daily, Levemir insulin 40 mg at bedtime, Imdur 60 mg daily, L-thyroxine 100 mcg daily, metoprolol tartrate 25 mg b.i.d., pantoprazole 40 mg daily, potassium chloride 10 mEq daily, furosemide 20 mg p.r.n., and p.r.n. sublingual nitroglycerin. The patient is scheduled to see my nurse practitioner, Evette Starkey, on 12/24 at 1315 hours and myself on 02/04 at 1530 hours. Therefore, the patient is discharged to home in stable condition on the aforementioned medications, with followup as described above. <ELECTRONICALLY SIGNED> By: Ciaran Fierro MD, FACC 12/19/19 1121 1604 99Jomonserrat Fierro MD, FACC /nt
== END 2019-12-18 15:00 | disposition home or self-care (01) ==
LOC: M.CL 09:32 → M.TBA-CV 15:05 → M.2W 17:49
PROVIDERS: ADMIT Internal Medicine
DX: I25.110 Atherosclerotic heart disease of native coronary artery with unstable angina pectoris (principal); E11.9 Type 2 diabetes mellitus without complications; I10 Essential (primary) hypertension; E78.5 Hyperlipidemia, unspecified

== ENCOUNTER → 2020-06-06 | Outpatient (CLI) | payer MEDICARE ==
[~2020-06-06] VITALS: Ht 152.4 cm; Wt 67.1 kg
[2020-06-06] VITALS (10 sets, daily range): BP systolic 111–147; BP diastolic 45–80
[~2020-06-06] MED LIST changes: +DOLOGEN CAPLET1 EACH PO; +KEFLEX250 M1 PO
[2020-06-06 08:14] LABS: HEMATOCRIT 34.8 % (37.0-47.0); MCH 24.8 pg (26.0-34.0); MCHC 31.7 g/dL (28.0-37.0); MCV 78.5 fL (80.0-100.0); MPV 8.8 fl. (7.2-11.1); RBC 4.44 mil/uL (4.20-5.00); RDW-CV 18.7 % (10.5-14.5); WBC 9.6 thou/uL (4.0-11.0)
[2020-06-06 08:20] LABS: ANION GAP 12 mmol/L (7-16); BUN 24 mg/dL (7-18); CALCIUM 8.8 mg/dL (8.5-10.1); CHLORIDE 102 mmol/L (98-107); CO2 22 mmol/L (21-32); CREATININE 1.7 mg/dL (0.6-1.3); GLUCOSE 180 mg/dL (70-99); POTASSIUM 4.8 mmol/L (3.5-5.1); SODIUM 136 mmol/L (136-145)
[2020-06-06 08:21] LABS: APTT 23.1 Seconds (25.0-31.3)
[2020-06-06 08:29] LABS: ALBUMIN 3.8 g/dL (3.4-5.0); ALKALINE PHOSPHATASE 67 U/L (46-116); CHOLESTEROL 124 mg/dL (<200); HDL CHOLESTEROL 46 mg/dL (>40); LDL CHOLESTEROL 27 mg/dL (<100); SERUM ASSESSMENT Clear; SGOT 26 U/L (15-37); SGPT 16 U/L (30-65); TC:HDL 2.7 Ratio (Not establshd); TOTAL BILIRUBIN 0.4 mg/dL (<0.1-1.0); TOTAL PROTEIN 8.6 g/dL (6.4-8.2); TRIGLYCERIDE 258 mg/dL (<150); VLDL 52 mg/dL (<40)
--- NOTE | 2020-06-06 10:33 | EKG ---
[place] [address] ELECTROCARDIOGRAM REPORT Name: CHI VELOZ Room: [facility].#: [id number] Admission: 06/06/20 Attend Phys: Junaid Buckner Discharge: Date of : 38 Date of Service: 06/06/20 0839 Report #: [id number] THIS REPORT FOR: //name// [facility] Test Date: 2020-06-06 Test Time: 08:39:52 Pat Name: CHI VELOZ Department: Room: Gender: F Community Support Professional: : 1940 Requested By: Ciaran Fierro Order Number: [id number] Reading MD: Ciaran Fierro Measurements Intervals [place] Rate: 58 P: -10 DE: 212 QRS: -13 QRSD: 141 T: 3 QT: 553 QTc: 544 Interpretive Statements Sinus rhythm Atrial premature complex Borderline prolonged DE interval Right bundle branch block Probable LVH with secondary repol abnrm Inferior infarct, old Prolonged QT interval Compared to ECG 12/18/2019 08:13:39 Atrial premature complex(es) now present Prolonged QT interval now present Myocardial infarct finding still present Electronically Signed On 06-06-2020 10:33:44 CDT by Ciaran Fierro [email or web address] <ELECTRONICALLY SIGNED> By: Ciaran Fierro MD, [facility] 06/06/20 1033 8 8 Ciaran Fierro MD, [facility] /EPI
--- NOTE | 2020-06-07 11:49 | CARD ---
[address] [address] CARDIAC CATH REPORT Name: CHI VELOZ Room: [facility] DIANA BarneyDonald.#: [id number] Admission: 06/06/20 Attend Phys: Ciaran Fierro MD, Discharge: Date of : 38 Report #: [id number] THIS REPORT FOR: //name// cc: Silverio Wagoner MD, Matthew W. MD ~ APPROVED REPORT Study performed: 06/06/2020 08:54:16 Patient Details Patient Status: OP Room #: The patient is a 79 year-old female Event Personnel Ciaran Fierro Tank Pumper, Gema Meyer Surgical Assistant Certified, En Nolan TRIPOLER Scrub, Nghia Kaminski TRIPOLER Monitor Procedures Performed Left Heart Cath w/or w/o Coronaries [id number] [facility] Indication Chest pain Risk Factors Hypercholesterolemia, Hypertension Previous Procedures/Diagnoses Previous PCI Procedure Narrative The patient was brought electively to the Cardiac Catheterization Laboratory and was prepped and draped in a sterile manner. The right femoral was infiltrated with 2% Lidocaine subcutaneous anesthesia. A [place] 6 FR sheath was inserted into the RFA. Coronary angiography was performed using coronary diagnostic catheters. The right coronary system was accessed and visualized with a 3DRC catheter. The left coronary system was accessed and visualized with a JL4 catheter. The left ventricle was accessed and visualized with a PIG Tail catheter. Left ventricular/Aortic Valve gradient assessed via catheter pullback. Closure device was deployed with a 6 Fr Mynx. The patient tolerated the procedure well and there were no complications associated with the procedure. Intraoperative Conscious Sedation Sedation start time: 937 Case end Time: 958 [place] [address] CARDIAC CATH REPORT Name: CHI VELOZ Room: [facility] KAYLAN Dani#: [id number] Admission: 06/06/20 Attend Phys: Ciaran Fierro MD, Discharge: Date of : 38 Report #: [id number] Fentanyl 25 mcg Fluoro Time: 2.6 minutes Dose: DAP 19899 cGycm2 653 mGy Contrast Type and Amount: Visipaque 100 ml Diagnostic Cath Left Main 0% narrowing LAD 30% proximal and mid LAD narrowing with widely patent proximalmid LAD stents Diagonal 1 Widely patent stents in the first diagonal branch of the LAD Circumflex Widely patent mid circumflex stent with 30% first marginal narrowing Right Coronary Modest size dominant vessel with 30% proximal and mid vessel narrowing Left Ventriculography Left Ventriculography was not performed. Hemodynamics The aortic pressure is 157/54 mmHg with a mean of 91 mmHg. The left ventricular pressure is 152/7 mmHg with a mean of mmHg. The left ventricular end diastolic pressure is 22 mmHg. Conclusion 1. Moderate coronary artery disease characterized by the following: A 30% proximal and mid LAD narrowing with widely patent proximal and mid LAD stents B widely patent stents in the prominent first diagonal branch of the LAD C widely patent mid circumflex stent with 30% proximal first marginal narrowing D modest size dominant right coronary artery with 30% proximal and mid vessel narrowing 2. Mild systemic systolic hypertension with moderate elevation of left ventricular end-diastolic pressure at rest Recommendations Cardiac Risk Reduction Program [facility] [address] [place] [address] CARDIAC CATH REPORT Name: CHI VELOZ Room: [facility] DIANA Louise#: [id number] Admission: 06/06/20 Attend Phys: Ciaran Fierro MD, Discharge: Date of : 38 Report #: [id number] Diagnostic Cath Approved by: Ciaran Fierro MD Date/Time: 06/07/2020 11:47:31 <ELECTRONICALLY SIGNED> By: Ciaran Fierro MD, [facility] 06/07/20 1149 1149 1149Ciaran Fierro MD, FAC /INF
== END ==
LOC: M.CL 07:20
PROVIDERS: ATTEND Internal Medicine
DX: R07.9 Chest pain, unspecified (principal); I25.110 Atherosclerotic heart disease of native coronary artery with unstable angina pectoris; E78.2 Mixed hyperlipidemia; I10 Essential (primary) hypertension; E11.9 Type 2 diabetes mellitus without complications; K21.9 Gastro-esophageal reflux disease without esophagitis; Z95.5 Presence of coronary angioplasty implant and graft; Z79.4 Long term (current) use of insulin; Z79.82 Long term (current) use of aspirin; Z82.49 Family history of ischemic heart disease and other diseases of the circulatory system; Z87.440 Personal history of urinary (tract) infections; Z79.899 Other long term (current) drug therapy; Z98.890 Other specified postprocedural states

== ENCOUNTER → 2020-09-23 | Outpatient (CLI) | payer MEDICARE | LOC: M.RAD 14:17 | PROVIDERS: ATTEND Family Medicine | DX: Z12.39 Encounter for other screening for malignant neoplasm of breast (principal); R92.2 Inconclusive mammogram ==

== ENCOUNTER 2021-06-28 19:56 | Emergency (ER) | payer MEDICARE ==
[~2021-06-28] VITALS: Ht 152.4 cm; Wt 65.8 kg
[2021-06-28 20:37] LABS: ABSOLUTE BASOPHILS 0.1 thou/uL (0.0-0.2); ABSOLUTE EOSINOPHILS 0.3 thou/uL (0.0-0.7); ABSOLUTE LYMPHOCYTES 2.5 thou/uL (0.8-5.3); ABSOLUTE MONOCYTES 0.6 thou/uL (0.0-1.2); BASOPHILS 0.8 %; HEMATOCRIT 33.4 % (37.0-47.0); HEMOGLOBIN 10.6 gm/dL (12.0-15.0); LYMPHOCYTES 38.8 %; MCH 26.6 pg (26.0-34.0); MCHC 31.8 g/dL (28.0-37.0); MCV 83.8 fL (80.0-100.0); MONOCYTES 9.8 %; NUCLEATED RBCS 0 /100WBC; PLATELET COUNT* 293 thou/uL (150-400); POLYS 46.6 %; RBC 3.99 mil/uL (4.20-5.00); RDW-CV 17.5 % (10.5-14.5); WBC 6.5 thou/uL (4.0-11.0)
[2021-06-28 20:46] LABS: CALCIUM 8.6 mg/dL (8.5-10.1); CREATININE 2.1 mg/dL (0.6-1.3); POTASSIUM 4.6 mmol/L (3.5-5.1)
[2021-06-28 20:50] LABS: ALBUMIN 3.5 g/dL (3.4-5.0); TOTAL BILIRUBIN 0.4 mg/dL (<0.1-1.0); TOTAL PROTEIN 7.3 g/dL (6.4-8.2)
[2021-06-28] MEDS ORDERED: PROAIR HFA8.5 GM INH (21:34)
[2021-06-28] MEDS ORDERED: PREDNISONE 20 M20 MG PO (21:34)
[2021-06-28 21:47] VITALS: BP 137/78
--- NOTE | 2021-06-29 11:49 | EKG ---
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: Jewelry Sorter: [place] : 1940 Requested By: Bang Marshall Order Number: [id number] MD: Ciaran Fierro Measurements Intervals [place] Rate: 98 P: -8 [place]: 163 QRS: -23 QRSD: 132 T: -23 QT: 411 QTc: 525 Interpretive Statements Sinus rhythm Right bundle branch block LVH with secondary repolarization abnormality Inferior infarct, age indeterminate Compared to ECG 06/06/2020 08:39:52 Atrial premature complex(es) no longer present Prolonged QT interval no longer present Myocardial infarct finding still present Sinus rate has increased Electronically Signed On 06-29-2021 11:49:10 CDT by Ciaran Fierro [email or web address] <ELECTRONICALLY SIGNED> By: Ciaran Fierro MD, [facility] 06/29/21 1149 31 31 Ciaran Fierro MD, [facility] /EPI
== END 2021-06-28 21:48 | disposition left against medical advice (07) ==
LOC: M.ERS 19:56
PROVIDERS: Physician Assistant
DX: R09.02 Hypoxemia (principal); Z20.822 Contact with and (suspected) exposure to COVID-19; T63.441A Toxic effect of venom of bees, accidental (unintentional), initial encounter; E11.9 Type 2 diabetes mellitus without complications; I10 Essential (primary) hypertension; Z88.2 Allergy status to sulfonamides; K21.9 Gastro-esophageal reflux disease without esophagitis; Y93.89 Activity, other specified; Y92.89 Other specified places as the place of occurrence of the external cause; Y99.8 Other external cause status

== ENCOUNTER → 2021-08-19 | Outpatient (CLI) | payer MEDICARE ==
[~2021-08-19] MED LIST changes: +PREDNISONE 20 M20 MG PO; +PROAIR HFA8.5 GM INH
== END ==
LOC: M.LAB 10:52
PROVIDERS: ATTEND Internal Medicine Gastroenterology
DX: Z01.812 Encounter for preprocedural laboratory examination (principal); Z20.822 Contact with and (suspected) exposure to COVID-19

== ENCOUNTER → 2021-08-24 | Outpatient (CLI) | payer MEDICARE | LOC: M.RAD 09:00 | PROVIDERS: ATTEND Internal Medicine Gastroenterology | DX: R13.10 Dysphagia, unspecified (principal) ==

== ENCOUNTER → 2021-10-27 | Outpatient (CLI) | payer MEDICARE | LOC: M.RAD 09:50 | PROVIDERS: ATTEND Internal Medicine Gastroenterology | DX: R13.10 Dysphagia, unspecified (principal) ==